=== PATIENT | female | born 1995 | race Caucasian/White ===

== ENCOUNTER 2020-06-13 10:29 | Inpatient (IN) | payer MEDICAID ==
[2020-06-13] MEDS ORDERED: ZOLPIDEM TARTRATE 10 MG TABLET PO PRN (12:30)
[2020-06-13 15:21] VITALS: BP 110/56
[2020-06-13 16:27] VITALS: BP 109/58
[2020-06-14 04:29] VITALS: BP_SYST 106; BP_SYST 113; BP_DIAS 62; BP_DIAS 64
[2020-06-14 08:00] VITALS: BP 110/74
[2020-06-14] MEDS ORDERED: OMEPRAZOLE 20 MG CAPSULE PO PRN (08:30)
[2020-06-14] MEDS ORDERED: BACITRACIN 28.4 GM OINTMENT TP PRN (08:30)
[2020-06-14] MEDS ORDERED: PETROLATUM,WHITE 28 GM JELLY TP PRN (08:30)
[2020-06-14] MEDS ORDERED: MAGNESIUM HYDROXIDE SUSPENSION 30 ML UDCUP PO PRN (08:30)
[2020-06-14] MEDS ORDERED: LOPERAMIDE HCL 2 MG CAPSULE PO PRN (08:30)
[2020-06-14] MEDS ORDERED: ONDANSETRON HCL 4 MG TABLET PO PRN (08:30)
[2020-06-14] MEDS ORDERED: DOCUSATE SODIUM 100 MG CAPSULE PO PRN (08:30)
[2020-06-14] MEDS ORDERED: ALBUTEROL SULFATE HFA 90 MCG/PUFF 8 GM INHALER IH PRN (08:30)
[2020-06-14] MEDS ORDERED: MAG HYDROX/AL HYDROX/SIMETH ES 30 ML SUSPENSION UDCUP PO PRN (08:30)
[2020-06-14] MEDS ORDERED: CloNIDine HCL 0.1 MG TABLET PO PRN (08:30)
[2020-06-14] MEDS ORDERED: BENZOCAINE/MENTHOL LOZENGE PO PRN (08:30)
[2020-06-14] MEDS ORDERED: IBUPROFEN 600 MG TABLET PO PRN (08:30)
[2020-06-14 08:43] LABS: BASOPHILS % (AUTO) 0.2 % (0.0-2.0); EOSINOPHILS % (AUTO) 0.8 % (1.0-6.0); HEMATOCRIT 37.9 % (36-46); HEMOGLOBIN 12.8 g/dL (12.0-16.0); LYMPHOCYTES # (AUTO) 1.1 K/uL (1.0-4.8); LYMPHOCYTES % (AUTO) 24.1 % (22.0-44.0); MEAN CORPUSCULAR HEMOGLOBIN 29.8 pg (26.0-34.0); MEAN CORPUSCULAR HGB CONC 33.8 G/dL (31.0-37.0); MEAN CORPUSCULAR VOLUME 88 fL (80-100); MONOCYTES # (AUTO) 0.5 K/uL (0.1-1.0); MONOCYTES % (AUTO) 10.5 % (2.0-9.0); NEUTROPHILS % (AUTO) 64.4 % (40.0-70.0); PLATELET COUNT (AUTO) 322 K/uL (150-450); RED BLOOD CELL COUNT(AUTO) 4.29 MIL/uL (4.00-5.20); RED CELL DISTRIBUTION WIDTH 14.2 % (11.5-14.5)
[2020-06-14] MEDS: DIVALPROEX SODIUM 500 MG DR TABLET PO SCH ×2 (09:00→17:19)
[2020-06-14] MEDS: RisperiDONE 3 MG TABLET PO SCH ×2 (09:00→17:19)
[2020-06-14 09:05] LABS: ALANINE AMINOTRANSFERASE 26 U/L (12-78); ALBUMIN 3.3 g/dL (3.4-5.0); ALKALINE PHOSPHATASE 73 U/L (46-116); ANION GAP 6 mmol/L (8-16); ASPARTATE AMINOTRANSFERASE 24 U/L (15-37); BILIRUBIN,TOTAL 0.3 mg/dL (0.1-1.0); CALCIUM, TOTAL 8.9 mg/dL (8.8-10.5); CARBON DIOXIDE 29 mmol/L (22-29); CHLORIDE 101 mmol/L (98-107); CREATININE 1.11 mg/dL (0.60-1.30); GLOMERULAR FILTR. RATE CALC > 60 mL/min (>60); GLUCOSE,RANDOM 136 mg/dL (70-110); SODIUM SERUM 136 mmol/L (136-145); TOTAL PROTEIN, SERUM 7.6 g/dL (6.4-8.2); UREA NITROGEN, BLOOD 19 mg/dL (7-18)
[2020-06-14 16:09] VITALS: BP 98/61
[2020-06-14] MEDS: LORazepam 2 MG TABLET PO PRN (17:31)
[2020-06-15 00:35] VITALS: BP 114/73
[2020-06-15] MEDS: RisperiDONE 3 MG TABLET PO SCH ×2 (08:28→16:49)
[2020-06-15] MEDS: DIVALPROEX SODIUM 500 MG DR TABLET PO SCH ×2 (08:28→16:49)
[2020-06-15 08:29] VITALS: BP 112/71
[2020-06-15] MEDS ORDERED: DiphenhydrAMINE HCL 50 MG/ML VIAL ONE (13:15)
[2020-06-15] MEDS ORDERED: HALOPERIDOL LACTATE 5 MG/ML VIAL ONE (13:15)
[2020-06-15] MEDS ORDERED: LORazepam 2 MG/ML VIAL ONE (13:15)
[2020-06-15] MEDS ORDERED: HALOPERIDOL LACTATE 5 MG/ML VIAL IM ONE (13:30)
[2020-06-15] MEDS ORDERED: DiphenhydrAMINE HCL 50 MG/ML VIAL IM ONE (13:30)
[2020-06-15] MEDS ORDERED: LORazepam 2 MG/ML VIAL IM ONE (13:30)
[2020-06-15 16:09] VITALS: BP 112/62
[2020-06-16 01:06] VITALS: BP 105/73
[2020-06-16] MEDS: DIVALPROEX SODIUM 500 MG DR TABLET PO SCH ×2 (08:24→17:34)
[2020-06-16] MEDS: RisperiDONE 3 MG TABLET PO SCH ×2 (08:24→17:34)
[2020-06-16 08:38] VITALS: BP 112/78
[2020-06-16] MEDS: LORazepam 2 MG TABLET PO PRN ×2 (10:58→17:35)
[2020-06-16 17:27] VITALS: BP 112/76
[2020-06-16] MEDS: HALOPERIDOL 5 MG TABLET PO PRN (17:35)
[2020-06-17 08:36] LABS: APPEARANCE,URINE CLOUDY (CLEAR); BILIRUBIN,URINE NEGATIVE (NEGATIVE); GLUCOSE, URINE (UA) NEGATIVE (NEGATIVE); KETONES,URINE NEGATIVE (NEGATIVE); LEUKOCYTE ESTERASE ,URINE SMALL (NEGATIVE); NITRATE,URINE NEGATIVE (NEGATIVE); OCCULT BLOOD,URINE NEGATIVE (NEGATIVE); PROTEIN,URINE NEGATIVE (NEGATIVE); UROBILINOGEN,URINE 0.2 mg/dL (<=1.0)
[2020-06-17 08:40] LABS: AMPHET/METH SCREEN,URINE NEGATIVE (NEGATIVE); BARBITURATE SCREEN, URINE NEGATIVE (NEGATIVE); BENZODIAZEPINES SCREEN,URINE NEGATIVE (NEGATIVE); CANNABINOID SCREEN,URINE NEGATIVE (NEGATIVE); COCAINE SCREEN,URINE NEGATIVE (NEGATIVE); METHADONE SCREEN, URINE NEGATIVE (NEGATIVE); OPIATE SCREEN,URINE NEGATIVE (NEGATIVE)
[2020-06-17 08:41] LABS: PHENCYCLIDINE SCREEN,URINE NEGATIVE (NEGATIVE)
[2020-06-17] MEDS: HALOPERIDOL 5 MG TABLET PO PRN (09:05)
[2020-06-17] MEDS: LORazepam 2 MG TABLET PO PRN (09:05)
[2020-06-17] MEDS: RisperiDONE 3 MG TABLET PO SCH ×2 (09:05→16:28)
[2020-06-17] MEDS: DIVALPROEX SODIUM 500 MG DR TABLET PO SCH ×2 (09:05→16:28)
[2020-06-17 09:20] LABS: BACTERIA,URINE Moderate /HPF (None Seen); RBC,URINE None Seen /HPF (0-2)
[2020-06-17 09:21] LABS: SQUAMOUS EPITHELIAL CELL,UR Many /LPF (None Seen)
[2020-06-17 16:59] VITALS: BP 104/62
[2020-06-18 05:36] VITALS: BP 103/58
[2020-06-18] MEDS: RisperiDONE 3 MG TABLET PO SCH ×2 (08:30→17:15)
[2020-06-18] MEDS: DIVALPROEX SODIUM 500 MG DR TABLET PO SCH ×2 (08:31→17:15)
[2020-06-18] MEDS: LORazepam 2 MG TABLET PO PRN (08:31)
[2020-06-18 08:35] VITALS: BP_SYST 118
[2020-06-18 16:14] VITALS: BP 114/72
[2020-06-19] VITALS (9 sets, daily range): BP systolic 95–121; BP diastolic 54–78
[2020-06-19] MEDS: DIVALPROEX SODIUM 500 MG DR TABLET PO SCH ×2 (08:42→16:26)
[2020-06-19] MEDS: RisperiDONE 3 MG TABLET PO SCH ×2 (08:42→16:26)
[2020-06-19] MEDS ORDERED: RISP3TAB14 PO (14:46)
[2020-06-19] MEDS ORDERED: DIVA-80 PO (14:46)
[2020-06-19] MEDS: CEPHALEXIN MONOHYDRATE 500 MG CAPSULE PO SCH (17:52)
[2020-06-20 04:12] VITALS: BP 119/69
[2020-06-20 08:19] VITALS: BP 112/63
[2020-06-20] MEDS: DIVALPROEX SODIUM 500 MG DR TABLET PO SCH ×2 (08:24→17:37)
[2020-06-20] MEDS: CEPHALEXIN MONOHYDRATE 500 MG CAPSULE PO SCH ×2 (08:24→17:37)
[2020-06-20] MEDS: RisperiDONE 3 MG TABLET PO SCH ×2 (08:24→17:37)
[2020-06-20 12:30] VITALS: BP 109/60
[2020-06-20 13:15] VITALS: BP 112/64
[2020-06-20 13:48] VITALS: BP 109/61
[2020-06-20] MEDS: ACETAMINOPHEN 325 MG TABLET PO PRN (14:47)
[2020-06-20 16:14] VITALS: BP 100/63
[2020-06-21] MEDS: ACETAMINOPHEN 325 MG TABLET PO PRN ×2 (00:15→08:07)
[2020-06-21 01:01] VITALS: BP 127/75
[2020-06-21] MEDS: RisperiDONE 3 MG TABLET PO SCH (08:06)
[2020-06-21] MEDS: DIVALPROEX SODIUM 500 MG DR TABLET PO SCH (08:06)
[2020-06-21] MEDS: CEPHALEXIN MONOHYDRATE 500 MG CAPSULE PO SCH (08:06)
[2020-06-21 08:25] VITALS: BP 106/57
[2020-06-21 09:51] VITALS: BP 106/57
[2020-06-21] MEDS ORDERED: DIVA-112 PO (11:31)
== END 2020-06-21 12:55 | disposition home or self-care (01) | DRG 750 ==
LOC: B3A 15:21
PROVIDERS: ADMIT Psychiatry & Neurology Psychiatry; ATTEND Psychiatry & Neurology Psychiatry
DX: F25.9 Schizoaffective disorder, unspecified (principal); Z59.0 Homelessness; Z79.899 Other long term (current) drug therapy
CPT/HCPCS: 80307; 87081; 87086; J1200; J1630; J2060; Q0162

== ENCOUNTER 2020-06-19 14:13 | Emergency (ER) | payer MEDICAID, OTHER ==
[~2020-06-19] VITALS: Ht 165.1 cm; Wt 50.0 kg
[2020-06-19 14:40] VITALS: BP 111/69
[2020-06-19] MEDS ORDERED: DIVA-80 PO (14:46)
[2020-06-19] MEDS ORDERED: RISP3TAB14 PO (14:46)
[2020-06-19] MEDS ORDERED: CEPHALEXIN MONOHYDRATE 500 MG CAPSULE PO ONE (15:00)
[2020-06-19] MEDS ORDERED: ACETAMINOPHEN 500 MG TABLET PO ONE (15:00)
[2020-06-19 15:18] LABS: APPEARANCE,URINE CLOUDY (CLEAR); BILIRUBIN,URINE NEGATIVE (NEGATIVE); GLUCOSE, URINE (UA) NEGATIVE (NEGATIVE); KETONES,URINE NEGATIVE (NEGATIVE); LEUKOCYTE ESTERASE ,URINE NEGATIVE (NEGATIVE); NITRATE,URINE NEGATIVE (NEGATIVE); OCCULT BLOOD,URINE LARGE (NEGATIVE); PH,URINE 7.5 (5.0-8.0); PROTEIN,URINE TRACE (NEGATIVE); UROBILINOGEN,URINE 0.2 mg/dL (<=1.0)
[2020-06-19 15:27] LABS: BACTERIA,URINE Few /HPF (None Seen); RBC,URINE 26-50 /HPF (0-2); SQUAMOUS EPITHELIAL CELL,UR Few /LPF (None Seen)
== END 2020-06-19 15:38 | disposition home or self-care (01) ==
LOC: EMS 14:13
DX: S30.0XXA Contusion of lower back and pelvis, initial encounter (principal); Z79.899 Other long term (current) drug therapy; W19.XXXA Unspecified fall, initial encounter; Y93.89 Activity, other specified; Y92.89 Other specified places as the place of occurrence of the external cause; Y99.8 Other external cause status